=== PATIENT | female | born 2000 | race African-American/Black ===

== ENCOUNTER 2019-06-13 10:18 | Emergency (ER) | payer OTHER, SELFPAY ==
--- NOTE | ~2019-06-13 | XR_ITS ---
EXAMINATION: XR chest 2V DATE: 06/13/2019 10:42 INDICATION: Dizziness. TECHNIQUE: Frontal and lateral views of the chest were obtained. COMPARISON: None. FINDINGS: The lungs are clear without pneumonia, pleural effusion, or pneumothorax. The heart size is normal. IMPRESSION: 1. Normal chest. Reviewed, dictated and finalized at location A. IMPRESSION: 1. Normal chest.
[2019-06-13 10:18] VITALS: BP 139/88; PULSE 104; RESP 18; TEMP 37; O2SAT 100
--- NOTE | 2019-06-13 10:31 | ED.GENADULT ---
HPI - General Adult General Chief complaint: Allergic Reaction Stated complaint: ALLERGIC REACTION Source: RN notes reviewed History of Present Illness HPI narrative: Patient presents emergency department from work for shortness of breath. Patient was at work this morning when her coworker pouring out bleach into enclosed area when the patient began to feel short of breath and feel that her throat was closing. At that time EMS was called and patient was given Benadryl 50 mg by EMS. At this time the patient states she is feeling much better. Denies any current shortness of breath. Patient denies any previous lung history. Denies having fevers or chills chest pain abdominal pain nausea vomiting or any other symptoms Related Data Home Medications Medication Instructions Recorded Confirmed No Home Medications 06/13/19 06/13/19 Allergies Allergy/AdvReac Type Severity Reaction Status Date / Time Bleach (Sodium Hypochlorite) Allergy Difficulty Verified 06/13/19 10:27 Breathing Review of Systems Review of Systems: Narrative: Gen.: Denies fevers or chills Eyes: Denies eye pain or visual change ENT: Denies congestion Respiratory: See HPI CV: Denies chest pain or palpitations GI: Denies abdominal pain nausea, emesis or diarrhea denies Musculoskeletal: Denies back pain or muscle pain Neuro: Denies numbness, tingling, weakness or focal weakness Skin: Denies rash Except as documented, all other systems reviewed and negative COUNTS INCLUDE 234 BEDS AT THE [facility] Past Medical History Medical History (Updated 06/13/19 @ 11:38 by Moisés Kendall DO) Patient denies significant medical history Social History Social History (Updated 06/13/19 @ 10:32 by Moisés Kendall DO) Smoking status: Never smoker Exam Narrative: Exam Narrative: APPEARANCE: No acute distress, nontoxic, resting in bed EYES: EOMI HEENT: Normocephalic, atraumatic, OMM, no erythema or exudate posterior pharynx airway patent voice normal RESPIRATORY: No respiratory distress Clear to auscultation bilaterally with no rhonchi wheezing or rales. CARDIOVASCULAR: Regular rate and rhythm without murmurs rubs or gallops. ABDOMINAL: Soft, nontender, nondistended, no rebound or guarding MUSCULOSKELETAl: Moves all extremities. No clubbing, cyanosis or edema. NEURO: Awake and alert. Following commands, speech normal, no focal deficits SKIN:: Warm, dry. No rashes lesions or abrasions PSYCHIATRIC: Normal affect/mood, Course Course Emergency Course: Patient is remained asymptomatic throughout her stay in ED Discussed with patient results of workup and diagnosis. Discussed need for follow-up with primary care, proper use of medication, and reasons to return to the emergency department. Patient understands and agrees to current treatment plan Vital Signs Vital signs: Vital Signs Temperature 98.6 F 06/13/19 10:18 Pulse Rate 104 H 06/13/19 10:18 Respiratory Rate 18 06/13/19 10:18 Blood Pressure 139/88 06/13/19 10:18 Pulse Oximetry 100 06/13/19 10:18 Temperature 98.6 F 06/13/19 10:18 Pulse Rate 81 06/13/19 11:18 Respiratory Rate 18 06/13/19 10:18 Blood Pressure 129/81 06/13/19 11:18 Pulse Oximetry 100 06/13/19 10:18 Medical Decision Making Vital Signs Vital Signs: Vital Signs Temperature 98.6 F 06/13/19 10:18 Pulse Rate 104 H 06/13/19 10:18 Respiratory Rate 18 06/13/19 10:18 Blood Pressure 139/88 06/13/19 10:18 Pulse Oximetry 100 06/13/19 10:18 Temperature 98.6 F 06/13/19 10:18 Pulse Rate 81 06/13/19 11:18 Respiratory Rate 18 06/13/19 10:18 Blood Pressure 129/81 06/13/19 11:18 Pulse Oximetry 100 06/13/19 10:18 Imaging Data Radiologist's impression: ITS Impressions Chest X-Ray 06/13/19 10:44 IMPRESSION: 1. Normal chest. Discharge Plan Discharge Clinical Impression: Exposure to chemical inhalation Patient Disposition: Home, Self-Care Condition: Stable Inst
[2019-06-13 11:18] VITALS: BP 129/81; PULSE 81
== END 2019-06-13 11:55 | disposition home or self-care (01) ==
PROVIDERS: Emergency Provider Emergency Medicine
DX: Z57.5 Occupational exposure to toxic agents in other industries (principal)
CPT/HCPCS: 71046; 99283

== ENCOUNTER 2022-12-18 18:21 | Emergency (ER) | payer SELFPAY ==
[2022-12-18 18:33] VITALS: BP 128/84; PULSE 92; RESP 20; TEMP 36.8; O2SAT 100
--- NOTE | 2022-12-18 19:09 | PC.NURSE ---
Patient comes to desk to state, I am leaving, what I need is not urgent. I will just come back later cause I don't want to wait hours for it. Patient left ED with a steady gait with belongings in hand. Patient in no acute distress. Patient marked as left without being seen, triaged.
== END 2022-12-18 19:15 | disposition left against medical advice (07) ==
LOC: ANHED 19:16
DX: Z32.01 Encounter for pregnancy test, result positive (principal)
CPT/HCPCS: 99199

== ENCOUNTER 2022-12-19 09:02 | Emergency (ER) | payer MEDICAID, SELFPAY ==
--- NOTE | ~2022-12-19 | US_ITS ---
EXAMINATION: US OB transvaginal DATE: 12/19/2022 15:18 INDICATION: First trimester dating TECHNIQUE: Real-time pelvic transabdominal and transvaginal ultrasound was performed. COMPARISON: None. FINDINGS: The uterus measures 8.2 x 5.1 x 5.5 cm. The endometrial thickness measures 1.9 cm. No intra uterine gestational sac is identified. The right ovary measures 4.2 x 1.9 x 2.0 cm. The left ovary me asures 3.7 x 2.1 x 3.0 cm. There is normal vascular flow in the ovaries. There is a small amount of f ree fluid in the in the right adnexa. IMPRESSION: 1. of unknown location. Although no intrauterine gestational sac is seen, this may be due t o early gestation. If the patient is clinically stable, recommend followup with serial beta-hCG and u ltrasound. Reviewed, dictated and finalized at location B. HEALTH CARE CASE MANAGER IMPRESSION: 1. of unknown location. Although no intrauterine gestational sac is s een, this may be due to early gestation. If the patient is clinically stable, r ecommend followup with serial beta-hCG and ultrasound.
[2022-12-19 09:13] VITALS: BP 119/69; PULSE 70; RESP 16; TEMP 36.6; O2SAT 100
[2022-12-19 12:00] LABS: Appearance Urine Cloudy (Clear); Bacteria Urine 4+ /hpf; Bilirubin Urine Negative (Negative); Blood Urine Negative (Negative); Color Urine Yellow (Yellow); Glucose Urine UA Negative (Negative); Ketones Urine Negative (Negative); Leukocyte Esterase Ur 1+ LEU/UL (Negative); Nitrate Urine Negative (Negative); Non Pathogenic Casts 0-2; Protein Urine Negative (Negative); RBC Urine 0-2 /hpf (0-2); Specific Grav Ur 1.029 (1.001-1.035); Squamous Epithelial Cell Urine Many /hpf (Few); pH Urine 6.5 (5.0-9.0)
[2022-12-19 12:12] LABS: Add Urine Microscopic? YES
--- NOTE | 2022-12-19 12:23 | ED.GENADULT ---
HPI - General Adult General Chief complaint: Unspecified Stated complaint: low abd cramping positive preg Time Seen by Provider: 12/19/22 12:00 History of Present Illness HPI narrative: This is a 22yo female who presents with low abdominal cramping. She took 3 preganncy tests at home earlier which were positive, though the line was faint. The cramping started yesterday and she initially came to the ED but left when she saw how busy/crowded it was. She slept but continued to have symptoms today. 7 months post from a of a female infant 05/29/22. Did become anemic after this requiring a blood transfusion 1 week post . THe pain is bilateral and low. No vaginal bleeding or discharge. LMP was 11/15/22 and reported as normal in duration but light in flow. No nausea/vomiting. Does not have an ObGyn in the area as she recently moved her from [place]. No medications Allergy: codeine Related Data Allergies Allergy/AdvReac Type Severity Reaction Status Date / Time Bleach (Sodium Hypochlorite) Allergy Difficulty Verified 06/13/19 10:27 Breathing PMFSH Past Medical History Medical History (Updated 12/21/22 @ 01:13 by Randi Hamm MD) Anemia, required blood transfusion Miscarriage x1 Spontaneous vaginal delivery 05/29/22 Family History Family History Other Anemia Social History Social History Smoking status: Never smoker Alcohol use details: denies Substance use type: does not use Additional living arrangements comments: Recently moved from [place] Exam Const: General: cooperative, healthy appearing, comfortable, no acute distress, alert, awake, well groomed, average body habitus and well nourished; No in distress, anxious, combative, confusion, diaphoretic, ill appearing, intoxicated appearing, lethargic, patient obtunded or uncomfortable Orientation/consciousness: patient oriented x3 Limitations: no limitations HENMT: Head: normal to inspection Ears: hearing grossly normal bilaterally Resp: Effort & Inspection: normal respiratory effort, able to speak in complete sentences, no audible wheezes, no pursed lip breathing, no respiratory distress and not tachypneic Cardio: Rate: regular rate, not bradycardic and not tachycardic GI: Inspection: normal to inspection, no abdominal wall ecchymosis, non-distended, no large pannus, no obesity, no scars and No caput medusae present GI Palp: No abdominal tenderness, Yes Soft to palpation, No Tenderness to palpation present (GI), No Guarding due to palpation present (GI) and No Rigid due to palpation Skin: General skin exam: normal color and no rashes or lesions noted Neuro: General: patient oriented x3 Cognition (Neuro): normal cognition Speech: normal speech Sensory Exam: normal sensation Psych: Appearance: grossly normal and well kempt Mental Status: mental status grossly normal Speech and movement: Normal speech and movement present Affect: normal affect Attitude: cooperative Thought process: Normal thought process present Course Vital Signs Vital signs: Vital Signs Temperature 97.8 F 12/19/22 09:13 Pulse Rate 70 12/19/22 09:13 Respiratory Rate 16 12/19/22 09:13 Blood Pressure 119/69 12/19/22 09:13 Pulse Oximetry 100 12/19/22 09:13 Oxygen Delivery Room Air 12/19/22 09:13 Temperature 97.8 F 12/19/22 09:13 Pulse Rate 70 12/19/22 09:13 Respiratory Rate 16 12/19/22 09:13 Blood Pressure 119/69 12/19/22 09:13 Pulse Oximetry 100 12/19/22 09:13 Oxygen Delivery Room Air 12/19/22 09:13 Medical Decision Making MDM Narrative Medical decision making narrative: This is a 22 yo patient at 4 weeks/6 days gestational age by LMP 11/15/22 presenting with crampy abdominal pain. Considered ectopic , spectrum of miscarriage/ (threatened,
[2022-12-19 13:27] LABS: Eosinophils Percent Auto 0.5 % (0-4.4); Hematocrit 32.8 % (37.0-47.0); Hemoglobin 10.2 g/dL (12.0-15.0); Immature Granulocyte Absolute 0.01 K/mm3 (0.00-0.031); Immature Granulocyte Percent A 0.2 % (0-0.5); Lymphocytes Absolute Auto 1.64 K/mm3 (0.9-3.2); Mean Corpuscular HGB Conc 31.1 g/dl (32-36); Mean Corpuscular Hemoglobin 25.3 pg (26-34); Mean Corpuscular Volume 81.4 fl (80-100); Mean Platelet Volume 11.5 fl (7.4-10.4); Monocytes Absolute Auto 0.3 K/mm3 (0.1-0.6); Monocytes Percent Auto 6.4 % (2.6-8.5); Neutrophils Absolute Auto 2.2 K/mm3 (1.3-6.7); Neutrophils Percent Auto 52.9 % (45.5-73.1); Platelet Count Result 182 k/mm3 (150-375); Red Blood Count 4.03 M/mm3 (4.2-5.4); Red Cell Distribution Width 14.7 % (11.5-14.5); White Blood Count 4.2 K/mm3 (4.5-10.0)
[2022-12-19] MEDS: AMOXICILLIN 500 MG CAPSULE PO (13:32)
[2022-12-19] MEDS: ACETAMINOPHEN 325 MG TABLET 650 MG PO (13:32)
[2022-12-19 13:38] LABS: Anion Gap 7 mmol/L (8-16); Blood Urea Nitrogen 12 mg/dL (7-17); Calcium 8.9 mg/dL (8.4-10.2); Carbon Dioxide 22 mmol/L (22-30); Chloride 107 mmol/L (98-107); Estimated CRCL calculation 119 ml/min; Estimated Glomerular Filt Rate > 60; Glucose 86 mg/dL (65-110); Potassium 3.7 mmol/L (3.4-5.0); Sodium 136 mmol/L (137-145)
== END 2022-12-19 16:00 | disposition home or self-care (01) ==
PROVIDERS: Emergency Medicine; Emergency Provider Student in an Organized Health Care Education/Training Program
DX: O23.41 Unspecified infection of urinary tract in pregnancy, first trimester (principal); N39.0 Urinary tract infection, site not specified; O26.891 Other specified pregnancy related conditions, first trimester; R10.30 Lower abdominal pain, unspecified; Z86.2 Personal history of diseases of the blood and blood-forming organs and certain disorders involving the immune mechanism; Z3A.01 Less than 8 weeks gestation of pregnancy
CPT/HCPCS: 36415; 76817; 80048; 81001; 81025; 84702; 85025; 87086; 99284; A9270